=== PATIENT | female | born 1940 | race Two or more races ===

== ENCOUNTER 2022-08-09 21:15 | Emergency (ER) | payer BC, OTHER ==
[~2022-08-09] VITALS: Ht 152.4 cm; Wt 82.6 kg
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
--- NOTE | 2022-08-09 21:55 | NUR ---
taken to CT
--- NOTE | 2022-08-09 23:31 | NUR ---
xray at bedside
--- NOTE | 2022-08-10 00:07 | NUR ---
Patient discharged to home in stable condition. Written and verbal after care instructions given. Patient verbalizes understanding of instruction. ambulatory with a steady gait. patient calling family member to be picked up. leaving with graddaughter.
[2022-08-10 00:15] VITALS: BP 155/78
== END 2022-08-10 00:17 | disposition home or self-care (01) ==
LOC: ER 21:19
DX: S00.03XA Contusion of scalp, initial encounter (principal); M53.3 Sacrococcygeal disorders, not elsewhere classified; Y09 Assault by unspecified means; Y93.89 Activity, other specified; Y92.89 Other specified places as the place of occurrence of the external cause; Y99.8 Other external cause status
CPT/HCPCS: 70450-TC; 72220-TC